=== PATIENT | female | born 1945 | race Caucasian/White ===

== ENCOUNTER 2018-08-23 21:28 | Emergency (ER) | payer MEDICARE, BC ==
[~2018-08-23] VITALS: Ht 170.2 cm; Wt 70.5 kg
[2018-08-23 22:34] VITALS: BP 189/87
[2018-08-23] MEDS ORDERED: amox tr/potassium clavulanate 875/125mg TAB PO ONE (23:30)
[2018-08-23] MEDS ORDERED: TETanus/Pertussis (Acell)/Diphther VAC/PF (Tdap-Adult) 0.5ml syringe IM ONE (23:30)
[2018-08-23] MEDS ORDERED: AMOX-422 PO (23:42)
== END 2018-08-24 00:27 | disposition home or self-care (01) ==
LOC: ER 21:29
DX: S61.551A Open bite of right wrist, initial encounter (principal); S61.531A Puncture wound without foreign body of right wrist, initial encounter; L03.113 Cellulitis of right upper limb; W55.01XA Bitten by cat, initial encounter; Y93.89 Activity, other specified; Y92.89 Other specified places as the place of occurrence of the external cause; Y99.9 Unspecified external cause status
CPT/HCPCS: 90471; 90715; 99283

== ENCOUNTER 2022-09-13 21:48 | Emergency (ER) | payer MEDICARE, BC ==
[~2022-09-13] VITALS: Ht 162.6 cm; Wt 63.2 kg
[2022-09-13 22:10] LABS: BASOPHILS % (AUTO) 0.6 % (0-1); EOSINOPHILS # (AUTO) 0.2 X10'3 (0-0.9); EOSINOPHILS % (AUTO) 2.5 % (0-6); HEMATOCRIT 38.8 % (35.0-45.0); HEMOGLOBIN 13.1 g/dl (12.0-16.0); LYMPHOCYTES # (AUTO) 2.6 X10'3 (1.1-4.8); LYMPHOCYTES % (AUTO) 41.3 % (21-51); MEAN CORPUSCULAR HGB CONC 33.7 g/dL (33.0-36.5); MEAN CORPUSCULAR VOLUME 91.9 FL (78-98); MEAN PLATELET VOLUME 8.2 FL (7.4-10.4); MONOCYTES # (AUTO) 0.5 X10'3 (0-0.9); MONOCYTES % (AUTO) 8.3 % (2-12); NEUTROPHILS % (AUTO) 47.3 % (42-75); PLATELET COUNT 275 X10'3 (140-440); RED BLOOD COUNT 4.22 X10'6 (4.20-5.60); RED CELL DISTRIBUTION WIDTH 12.6 % (11.5-14.5); WHITE BLOOD COUNT 6.3 X10'3 (4.5-11.0)
[2022-09-13 22:21] LABS: ALANINE AMINOTRANSFERASE 36 U/L (12-78); ALBUMIN/GLOBULIN RATIO 1.3 (1.1-1.5); ALKALINE PHOSPHATASE 50 IU/L (46-116); ANION GAP 9 (8-16); ASPARTATE AMINO TRANSFERASE 19 U/L (10-37); BILIRUBIN,TOTAL 0.3 MG/DL (0.1-1.0); BLOOD UREA NITROGEN 22 MG/DL (7-18); CALCIUM 9.8 MG/DL (8.5-10.1); CHLORIDE 102 MMOL/L (99-107); GLUCOSE 126 MG/DL (70-104); POTASSIUM 3.4 MMOL/L (3.5-5.1); SODIUM 139 MMOL/L (135-145); eGFR 54 ML/MIN
[2022-09-13 22:24] LABS: MAGNESIUM 2.2 MG/DL (1.5-2.4)
--- NOTE | 2022-09-13 22:50 | NUR ---
Patient reports feeling "unusual" in her upper epigastric region with upward radiation. VS updated and documented, BP improved from prior. Provider advised repeat EKG, this was completed and signed.
--- NOTE | 2022-09-14 02:06 | NUR ---
Per provider, patient completed ambulatory trial prior to DC, patient ambulated 25 feet, patient states she felt unwell, unable to continue. States she felt dizzy and lightheaded. Provider aware, advised verbal order NSS bolus 1L.
[2022-09-14] MEDS ORDERED: normal saline 1000ml 1,000 ML IV ONE (02:10)
[2022-09-14] MEDS ORDERED: normal saline 1000ML IV soln IVB ONE (02:15)
[2022-09-14] MEDS ORDERED: aspirin 81mg tab.chew PO ONE (02:20)
[2022-09-14] MEDS ORDERED: LORazepam 1 MG tablet PO ONE (02:25)
[2022-09-14 03:43] VITALS: BP 143/73
== END 2022-09-14 03:52 | disposition home or self-care (01) ==
LOC: ER 21:50
DX: R42 Dizziness and giddiness (principal); I10 Essential (primary) hypertension; M79.602 Pain in left arm; R11.0 Nausea; Z72.89 Other problems related to lifestyle
CPT/HCPCS: 36415; 80053; 83735; 83880; 84484; 85025; 93005; 96360; 96361; 99285; J7030

== ENCOUNTER 2024-05-18 20:13 | Emergency (ER) | payer MEDICARE, BC ==
[~2024-05-18] VITALS: Ht 162.6 cm; Wt 63.6 kg
[2024-05-18 20:35] LABS: BASOPHILS % (AUTO) 0.5 % (0-1); EOSINOPHILS # (AUTO) 0.1 X10'3 (0-0.9); EOSINOPHILS % (AUTO) 1.6 % (0-6); HEMATOCRIT 40.7 % (35.0-45.0); HEMOGLOBIN 13.4 g/dl (12.0-16.0); LYMPHOCYTES # (AUTO) 1.3 X10'3 (1.1-4.8); LYMPHOCYTES % (AUTO) 24.6 % (21-51); MEAN CORPUSCULAR HEMOGLOBIN 30.4 PG (27.0-31.0); MEAN CORPUSCULAR HGB CONC 32.9 g/dL (33.0-36.5); MEAN CORPUSCULAR VOLUME 92.4 FL (78-98); MEAN PLATELET VOLUME 8.2 FL (7.4-10.4); MONOCYTES # (AUTO) 0.5 X10'3 (0-0.9); MONOCYTES % (AUTO) 10.6 % (2-12); NEUTROPHILS # (AUTO) 3.2 X10'3 (1.8-7.7); NEUTROPHILS % (AUTO) 62.7 % (42-75); PLATELET COUNT 247 X10'3 (140-440); RED CELL DISTRIBUTION WIDTH 11.9 % (11.5-14.5); WHITE BLOOD COUNT 5.2 X10'3 (4.5-11.0)
[2024-05-18 20:47] LABS: ALANINE AMINOTRANSFERASE 43 U/L (12-78); ALBUMIN 3.9 G/DL (3.4-5.0); ALBUMIN/GLOBULIN RATIO 1.2 (1.1-1.5); ALKALINE PHOSPHATASE 51 IU/L (46-116); ANION GAP 8 (8-16); ASPARTATE AMINO TRANSFERASE 29 U/L (10-37); BILIRUBIN,TOTAL 0.5 MG/DL (0.1-1.0); BLOOD UREA NITROGEN 17 MG/DL (7-18); BUN/CREATININE RATIO 21.3 (10.0-20.0); CHLORIDE 104 MMOL/L (99-107); GLUCOSE 105 MG/DL (70-104); POTASSIUM 3.9 MMOL/L (3.5-5.1); SODIUM 142 MMOL/L (135-145); TOTAL CARBON DIOXIDE 30.2 MMOL/L (24-32); TOTAL PROTEIN 7.1 G/DL (6.4-8.2); eCRCL 51 ML/MIN; eGFR 70 ML/MIN
[2024-05-18 20:55] LABS: PRO BRAIN NATRIURETIC PEPTIDE 110 PG/ML (0-450)
[2024-05-18 21:46] VITALS: BP 141/80; PULSE 95; RESP 14; TEMP 98.1; O2SAT 99
== END 2024-05-18 21:48 | disposition home or self-care (01) ==
LOC: ER 20:13
DX: I10 Essential (primary) hypertension (principal)
CPT/HCPCS: 36415; 71045; 80053; 83880; 84484; 85025; 93005; 99285